=== PATIENT | female | born 2000 | race Caucasian/White ===

== ENCOUNTER 2018-12-04 07:43 | Outpatient (CLI) | payer OTHER ==
--- NOTE | 2018-12-04 09:05 | ULT ---
EXAM: OB ultrasound COMPARISON: None HISTORY: female. Evaluate size, dates, and anatomy. TECHNIQUE: Multiplanar grayscale and color Doppler images were obtained in a transabdominal ult rasound. FINDINGS: There is a single live intrauterine with heart rate of 143 bpm. A survey wa s performed which is unremarkable. The head, intracranial structures, heart, stomach, kidneys, umbilical cord, umbilical cord insertion, spine, face, and extremities were evaluated and were unrema rkable. Estimated weight is 282 g. Average age of the fetus based off today's examination is 19 weeks 5 days. BPD 4.73 cm -- 20 weeks 3 days HC 17.43 cm -- 20 weeks 0 days AC 13.90 cm -- 19 weeks 3 days FL 2.91 cm -- 19 weeks 0 days The placenta is anterior in location without focal abnormality. Amniotic fluid volume is subjectivel y within normal limits. The cervix is normal in length. There is no evidence of placenta previa. IMPRESSION: Single live intrauterine with estimated age of 19 weeks 5 days.
== END 2018-12-04 07:44 | disposition home or self-care (01) ==
LOC: BICULT 07:43 → EDSEX 07:43 → BICULT 07:44
DX: Z34.02 Encounter for supervision of normal first pregnancy, second trimester (principal); Z3A.19 19 weeks gestation of pregnancy
CPT/HCPCS: 76805

== ENCOUNTER 2019-01-03 17:00 | Day surgery (SDC) | payer OTHER ==
[2019-01-03 17:45] VITALS: BMI 26.4
[2019-01-03] MEDS ORDERED: hydrALAZINE 20 MG/ML VIAL SLOW IVP PRN (17:57)
[2019-01-03 18:30] LABS: Amnisure Test No Membranes Rupture (No Rupture)
[2019-01-03 18:31] LABS: Amnisure Internal Control QC ACCEPTABLE (ACCEPTABLE)
--- NOTE | 2019-01-03 19:20 | CON ---
DATE OF CONSULTATION: 01/03/2019 PRESENTING COMPLAINT: Possible rupture of membranes. HISTORY OF PRESENT ILLNESS: The patient is 24 or 25 weeks gestations, primarily sees Dr. Jason. She picked up some heavy things this afternoon and noticed fluid leaking. She said that she changed a pad and still had some presenting. She denies bleeding. She reports an active fetus. OB-DISPENSING AND MEASURING OPTICIAN HISTORY: None. Antepartum record not available on the unit. PAST MEDICAL HISTORY: Significant for Raynaud syndrome. PAST SURGICAL HISTORY: Significant for hernia repair. ALLERGIES: DENIES. MEDICATIONS: vitamins. SOCIAL HISTORY: Denies tobacco, alcohol, or IV drug use. FAMILY HISTORY: Noncontributory. REVIEW OF SYSTEMS: Noncontributory. PHYSICAL EXAMINATION: VITAL SIGNS: Temperature 98.5, pulse 85, respirations 17, and blood pressure 117/75. HEENT: Within normal limits auscultation bilaterally. HEART: Regular rhythm. ABDOMEN: Soft and nontender without rebound or guarding. FHTs are 150s. Vulva without lesions. Vagina without significant discharge noted on the perineum. Cervical exam is deferred. EXTREMITIES: No clubbing, cyanosis, or edema. AmniSure was collected was sent was negative. The patient's pad remained dry for approximately 1 hour after presentation to Labor and Delivery. IMPRESSION: Leukorrhea . No evidence of rupture of membranes at 25 weeks gestation. PLAN: Discharge home, keep scheduled followup Dr. Jason. ER precautions. Job ID: [id number]
[2019-01-04] MEDS ORDERED: FLU VACC QS2019-20(6MOS UP)/PF 60 MCG/0.5 ML SYRINGE IM ONE (09:00)
== END 2019-01-03 19:03 | disposition home or self-care (01) ==
LOC: L&D/OP 17:00
PROVIDERS: ATTEND Family Medicine
DX: O99.89 Other specified diseases and conditions complicating pregnancy, childbirth and the puerperium (principal); N89.8 Other specified noninflammatory disorders of vagina; O99.412 Diseases of the circulatory system complicating pregnancy, second trimester; I73.00 Raynaud's syndrome without gangrene; Z3A.25 25 weeks gestation of pregnancy
CPT/HCPCS: 84112; 99283

== ENCOUNTER 2019-01-20 12:43 | Day surgery (SDC) | payer OTHER ==
[2019-01-20 13:20] VITALS: BP 120/72; TEMP 99.4
[2019-01-20 13:21] VITALS: BMI 26.5
[2019-01-20] MEDS ORDERED: hydrALAZINE 20 MG/ML VIAL SLOW IVP PRN (13:41)
[2019-01-20] MEDS ORDERED: Lactated Ringer's 1,000 ML IV SCH ×2 (13:45→14:00)
[2019-01-20] MEDS ORDERED: Acetaminophen 650 MG in Premix Bag 1 BAG IVPB SCH (13:45)
[2019-01-20] MEDS ORDERED: Ondansetron PF 4 MG/2 ML Vial IVP SCH (13:45)
--- NOTE | 2019-01-20 13:46 | PDOC.FPROB ---
FMR OB H&P: HPI - History of Present Illness Chief Complaint: N/V/D Indentification: 18 y/o @ 27.0 WGA History of Present Illness: Presents for nausea, vomiting, diarrhea that started at 4am. She reports about 10 episodes of each since that time. She is unable to keep anything down including water. She reports a fever as high as 100.9. She denies any sick contacts. Has not received her flu shot. She reports her only complications during this are a subchorionic hemorrhage in her 1st T that resolved and now she is on restricted duty but she isn't sure why. Primary Care Physician: Dr. Jason FMR OB H&P: Current - Care : 1 Para: 0 Gestational age: 27w0d FMR OB H&P: History - Past Medical History PMH: Heart murmur, Raynauds - OB History OB History: G1 - Surgical History Sx History: 3 inguinal hernia repairs - Social History Social History: used to smoke, but quit when she found out she was . Denies EtOH or drug use - Family History Family History: Noncontributory FMR OB H&P: Medications - Current Home Medications: Medication Instructions Recorded Confirmed Type Vitamin 1 tablet PO DAILY 01/20/19 01/20/19 History Allergies/Adverse Reactions: Allergies Allergy/AdvReac Type Severity Reaction Status Date / Time No Known Allergies Allergy Unverified 01/03/19 17:47 FMR OB H&P: ROS - Review of Systems General: reports: fever/chills, weight/appetite/sleep changes (decreased appetite) Eyes: denies: vision changes, double vision ENT: denies: nasal congestion, sore throat Cardiovascular: denies: chest pain, edema Respiratory: denies: cough, shortness of breath Gastrointestinal: reports: abdominal pain, cramping, nausea, vomiting, diarrhea. denies: constipation Genitourinary (Female): denies: dysuria, hematuria Musculoskeletal: denies: pain, tenderness Neurologic: denies: numbness, weakness Integumentary: denies: itching, rash Psychological: denies: depression, anxiety FMR OB H&P: Vital Signs - Maternal Vital signs: Vital Signs - First Documented Temp Pulse Resp BP 99.4 F 116 H 18 120/72 01/20/19 13:20 01/20/19 13:20 01/20/19 13:20 01/20/19 13:20 - Heart Tones Baseline: 155 Variability: moderate Acceleration: absent Deceleration: absent Category: category 1 [place] contractions every: none FMR OB H&P: Physical Exam - Physical Exam General: NAD, awake, alert and oriented Deviation from normal: dry mucous membranes, NC/AT, conjunctiva clear Neck: supple, no LAD Heart: pulses present, no edema General: no respiratory distress Abdomen: soft, gravid, other (mildly tender in DANIELLE region) Musculoskeletal: pulses present Skin: good tugor, capillary refill <2 seconds FMR OB H&P: A/P - Problem List (1) Gastroenteritis Current Visit: Yes Status: Acute Code(s): K52.9 - NONINFECTIVE GASTROENTERITIS AND COLITIS, UNSPECIFIED Assessment and Plan: Pt symptoms consistent with gastroenteritis -Will treat symptomatically with zofran, 1L LR, IV tylenol -Monitor heart tones (2) Dehydration during Current Visit: Yes Status: Acute Code(s): O26.899 - OTH RELATED CONDITIONS, UNSPECIFIED TRIMESTER; E86.0 - DEHYDRATION Assessment and Plan: Will give pt 1L LR followed by LR @ 150mL/hr Zofran to help pt tolerate PO Check BMP (3) Current Visit: Yes Status: Acute Qualifiers: Weeks of gestation: 27 weeks Qualified Code(s): Z3A.27 - 27 weeks gestation of Assessment and Plan: Monitor FHT Disposition: Obs on L&D until improvement of symptoms Discussion: Date/Time: 01/20/19 4528 This H&P was discussed with Dr. De Jesus who agrees with the above documentation and plan. Signature: Tala Kiser MD, PGY-3
[2019-01-20 14:36] LABS: Anion Gap 18 mmol/L (10-20); BUN (Urea Nitrogen) 9 mg/dL (7.0-18.7); Calc. Creatinine Clearance 175 mL/min (70-130); Calcium 9.2 mg/dL (7.8-10.44); Carbon Dioxide 18 mmol/L (22-29); Chloride 106 mmol/L (98-107); Estimated GFR-MDRD Greater than 90; Glucose 74 mg/dL (70-105); Potassium 3.5 mmol/L (3.5-5.1); Sodium 138 mmol/L (136-145)
--- NOTE | 2019-01-20 16:16 | PDOC.BPN ---
- Brief Progress Note Reassessed pt after treatment. She is feeling a little better and has been able to tolerate some liquids po. Pulse and BP normal at bedside. -Will d/c patient home with return precautions -[place]eb[place] linaresn -Encouraged po hydration -f/u with Dr. Dorsey scheduled for Monday
[2019-01-20] MEDS ORDERED: FLU VACC QS2019-20(6MOS UP)/PF 60 MCG/0.5 ML SYRINGE IM ONE (21:00)
== END 2019-01-20 16:30 | disposition home or self-care (01) ==
LOC: L&D/OP 12:43
PROVIDERS: ATTEND Family Medicine
DX: O99.612 Diseases of the digestive system complicating pregnancy, second trimester (principal); K52.9 Noninfective gastroenteritis and colitis, unspecified; O26.899 Other specified pregnancy related conditions, unspecified trimester; E86.0 Dehydration; Z3A.27 27 weeks gestation of pregnancy; Z87.891 Personal history of nicotine dependence
CPT/HCPCS: 36415; 80048; 96361; 96365; 96375; 99282; J0131; J2405

== ENCOUNTER 2019-02-14 09:01 | Day surgery (SDC) | payer OTHER ==
[2019-02-14 09:29] VITALS: BP 115/73; TEMP 98.2; BMI 26.5
[2019-02-14] MEDS ORDERED: hydrALAZINE 20 MG/ML VIAL SLOW IVP PRN (10:24)
[2019-02-14 10:38] LABS: Bilirubin Negative (Negative); Blood, Urine Negative (Negative); Clarity Clear (Clear); Glucose, Urine (Dipstick) Normal (Negative); Leukocyte Negative Leu/uL (Negative); Nitrite Negative (Negative); Protein, Urine (Dipstick) Negative (Neg-Trace); RBC/HPF 0-3 HPF (0-3); Squamous Epithelial 0-3 HPF (0-3); Urobilinogen Normal mg/dL (Less than 2)
[2019-02-14 10:42] LABS: Bacteria/HPF 1+ HPF (None Seen)
[2019-02-14 10:46] LABS: Amnisure Test No Membranes Rupture (No Rupture)
[2019-02-14 10:47] LABS: Amnisure Internal Control QC ACCEPTABLE (ACCEPTABLE)
[2019-02-14] MEDS ORDERED: FLU VACC QS2019-20(6MOS UP)/PF 60 MCG/0.5 ML SYRINGE IM ONE (11:00)
--- NOTE | 2019-02-15 07:37 | PRG ---
DATE OF SERVICE: 02/14/2019 PRIMARY HYDRAULIC CORRUGATING MACHINE OPERATOR: Av Dorsey MD. CHIEF COMPLAINT: Decreased movement and leakage of fluid. HISTORY OF PRESENT ILLNESS: The patient is a 18-year-old G1, P0 female with an intrauterine at 30 weeks and 5 days, presenting to Labor and Delivery for decreased movement for the last day. She also reports that she had an episode of leakage of fluid that was watery and thought perhaps her water broke. The patient denies uterine contractions. She denies any fever or fall, headache, chest pain, shortness of breath, nausea, vomiting, diarrhea, constipation, hip problems, knee problems, muscle weakness, vaginal bleeding, urinary urgency or frequency. PAST MEDICAL HISTORY: Raynaud syndrome, migraines and a history of a heart murmur. PAST SURGICAL HISTORY: She has had three inguinal hernia repairs. ALLERGIES: NO KNOWN DRUG ALLERGIES. MEDICATIONS: vitamins. SOCIAL HISTORY: Quit smoking when she found out that she was . Denies alcohol or drug use. OB LABS: Unavailable at time of dictation. REVIEW OF SYSTEMS: Per HPI. PHYSICAL EXAMINATION: VITAL SIGNS: Blood pressure 115/73, heart rate of 91, saturating 99% on room air, respiratory rate 18, temperature 98.2. GENERAL: She appears to be in no acute distress. She is alert, oriented, cooperative, and pleasant to interact with. HEAD: Normocephalic, atraumatic. LUNGS: Clear to auscultation bilaterally. HEART: Regular rate and rhythm. ABDOMEN: Gravid, soft, nontender. EXTREMITIES: Nontender, nonedematous. She has no CVA tenderness. No paravertebral tenderness. She has minimal SI joint tenderness. EXTREMITIES: Nontender, nonedematous. GENITALIA: Vulva is without masses, lesions, or erythema. The vagina is moist with some discharge present, not significant in appearance. Cervix is closed visibly, has no erythema or visible lesions. On digital exam, cervix is closed and thick. heart tracing shows a baseline in the 140s with moderate long-term variability, positive 15 x 15 accelerations, no decelerations. She has a couple of contractions visible on the monitor and not felt by the patient. LABORATORY DATA: Urinalysis is positive for 4 to 6 white blood cells, 1+ bacteria, 0 to 3 squamous cells, negative nitrites, negative leukocyte esterase. AmniSure test is negative. VPIII is negative for Gardnerella, Trichomonas and Adrienne. ASSESSMENT AND PLAN: The patient is a 18-year-old G1, P0 female with an intrauterine at 30 weeks, presenting with decreased movement and leakage of fluid. The patient has no evidence of rupture of membranes. The patient has been given reassurance of reactive baby with a category 1 tracing. Evaluation suggests a bacteria and possible urinary tract infection. The patient has been given a prescription for Macrobid to be taken twice a day for the next week. She has instructions to follow up with her primary OB as scheduled. Job ID: [id number]
== END 2019-02-14 11:26 | disposition home health service (06) ==
LOC: L&D/OP 09:01
PROVIDERS: ATTEND Obstetrics & Gynecology
DX: O36.8130 Decreased fetal movements, third trimester, not applicable or unspecified (principal); O99.89 Other specified diseases and conditions complicating pregnancy, childbirth and the puerperium; N89.8 Other specified noninflammatory disorders of vagina; Z3A.31 31 weeks gestation of pregnancy; Z87.891 Personal history of nicotine dependence
CPT/HCPCS: 81001; 84112; 87480; 87510; 87660; 99285

== ENCOUNTER 2019-02-19 19:44 | Day surgery (SDC) | payer OTHER ==
[2019-02-19 20:16] VITALS: BP 119/76; TEMP 98.9; BMI 26.5
[2019-02-19] MEDS ORDERED: FLU VACC QS2019-20(6MOS UP)/PF 60 MCG/0.5 ML SYRINGE IM ONE (20:30)
--- NOTE | 2019-02-19 20:49 | PDOC.EVN ---
Event Note - Event Note Event Note: OBGYN At bedside now: @2051 H&P Dictated Amnisure is pending SSE in process with Maki Leavitt (M3) Procedure reviewed with patient pre-performance. EFM reviewed: 140s, reactive NST...ut irritability SSE: Maki Leavitt performed with my direct observation. CX apperas closed. No active LOF, no VB, no leakage with cough or valsalva. Exam negative for LOF at this time
[2019-02-19 20:53] LABS: Amnisure Test No Membranes Rupture (No Rupture)
[2019-02-19 20:54] LABS: Amnisure Internal Control QC ACCEPTABLE (ACCEPTABLE)
--- NOTE | 2019-02-19 21:03 | HP ---
TIME OF EVALUATION: Roughly 2044. LOCATION: Labor and Delivery in bed B. CHIEF COMPLAINT: Possible leakage of fluid after vaginal intercourse. Patient of Dr. Av Dorsey. HISTORY OF PRESENT ILLNESS: In brief, this is a 18-year-old G1, P0, at 31 weeks and 2 days with an EDC of 04/21/2019, who by her report states she had vaginal intercourse about 3 hours ago and had subsequent "pool of fluid" upon sitting. She denies vaginal bleeding and has good movement. REVIEW OF SYSTEMS: Complete review of systems was reviewed and is otherwise negative unless specified in the HPI. PAST MEDICAL HISTORY: Questionable cardiac murmur, history of Raynaud phenomenon. PAST SURGICAL HISTORY: Includes hernia repair (multiple) on the inguinal area. ALLERGIES: NONE. MEDICATIONS: Macrobid b.i.d. as given by other provider. PHYSICAL EXAMINATION: VITAL SIGNS: Blood pressure 119/76, pulse is 108, and her O2 saturation is 98%. Her temperature is 98.4. GENERAL: Clinically, there is no evidence of acute distress or acute surgical complication. : There is no evidence of gross vaginal bleeding and by RN exam, no gross evidence of leakage, although sterile spec exam is pending. INTERVENTIONS: Pending. I have ordered a sterile spec exam prep, and we were about to do a sterile speculum evaluation. LABORATORY DATA: Ordered. AmniSure was collected and is pending. ASSESSMENT: This is a G1, P0, at 31 weeks, status post vaginal intercourse with questionable leakage of fluid. Workup in process. PLAN: 1. Check AmniSure. 2. Sterile spec exam pending. 3. No evidence of labor at this time. 4. No evidence of abruption. 5. monitor shows reactive nonstress test by board review and no evidence of pathological decelerations. Job ID: [id number]
== END 2019-02-19 21:00 | disposition home or self-care (01) ==
LOC: L&D/OP 19:44
PROVIDERS: ATTEND Obstetrics & Gynecology
DX: O99.89 Other specified diseases and conditions complicating pregnancy, childbirth and the puerperium (principal); N89.8 Other specified noninflammatory disorders of vagina; Z3A.31 31 weeks gestation of pregnancy
CPT/HCPCS: 84112

== ENCOUNTER 2019-03-18 19:21 | Day surgery (SDC) | payer OTHER ==
[2019-03-18 19:50] VITALS: BP 132/81; TEMP 98.8; BMI 29.7
[2019-03-18] MEDS ORDERED: hydrALAZINE 20 MG/ML VIAL SLOW IVP PRN (20:20)
[2019-03-18 20:48] LABS: Hemoglobin 11.8 g/dL (12.0-16.0); Mean Corpuscular HGB CONC 34.9 g/dL (32.0-36.0); Mean Corpuscular Hemoglobin 31.4 pg (25.0-35.0); Mean Corpuscular Volume 90.1 fL (78.0-98.0); Mean Platelet Volume 11.6 fL (7.4-10.4); Platelet Count 121 thou/uL (130-400); RBC Distribution Width 11.1 % (11.5-14.5); Red Blood Cell (RBC) Count 3.75 mill/uL (4.00-5.20); White Blood Cell (WBC) Count 9.7 thou/uL (4.8-10.8)
[2019-03-18 21:07] LABS: ALT (SGPT) 8 U/L (8-55); AST (SGOT) 10 U/L (5-34); Albumin 3.4 g/dL (3.5-5.0); Alkaline Phosphatase 66 U/L (40-100); Anion Gap 13 mmol/L (10-20); BUN (Urea Nitrogen) 4 mg/dL (7.0-18.7); Bilirubin, Total 0.2 mg/dL (0.2-1.2); Calc. Creatinine Clearance 168 mL/min (70-130); Calcium 9.7 mg/dL (7.8-10.44); Carbon Dioxide 22 mmol/L (22-29); Chloride 104 mmol/L (98-107); Estimated GFR-MDRD Greater than 90; Globulin 3.3 g/dL (2.4-3.5); Glucose 118 mg/dL (70-105); Potassium 3.1 mmol/L (3.5-5.1); Protein, Total 6.7 g/dL (6.0-8.3); Sodium 136 mmol/L (136-145); Uric Acid 6.3 mg/dL (2.6-6.0)
[2019-03-18 21:51] LABS: Creatinine, Urine 30.93 mg/dL (47-110); Protein, Urine Random Quant Less than 10 mg/dL (1-14)
[2019-03-18] MEDS ORDERED: Fioricet 325/50/40 mg Tablet PO SCH (22:15)
--- NOTE | 2019-03-19 08:18 | PRG ---
DATE OF SERVICE: 03/18/2019 PRIMARY RETAIL SALESWORKER: Dr. Av Dorsey. CHIEF COMPLAINT: Elevated blood pressures and headache. HISTORY OF PRESENT ILLNESS: The patient is a 18-year-old G1, P0 female with an intrauterine at 35 weeks and 2 days, who is presenting to Labor and Delivery after checking her blood pressures at home and noticing them to be elevated. The patient reports that they were in the 140s up to the 150s at home on her mom's blood pressure cuff. The patient reported that she took her blood pressure because she was having a headache and did not feel very well. The patient denies a known hypertensive disorder. She does report a history of migraines, but reports that this headache unrelieved with Tylenol, does not feel like a typical migraine. She denies fever, fall, chest pain, shortness of breath, nausea, vomiting, diarrhea, constipation, hip problems, knee problems, muscle weakness. Denies vaginal bleeding, leakage of fluid, urinary urgency or frequency. PAST MEDICAL HISTORY: History of heart murmur, Raynaud's syndrome, arthritis. PAST SURGICAL HISTORY: She has had 3 inguinal hernia repairs. ALLERGIES: NO KNOWN DRUG ALLERGIES. MEDICATIONS: vitamins. SOCIAL HISTORY: Denies drug, alcohol, tobacco use. OBSTETRICS LABORATORY DATA: Unavailable at time of dictation. REVIEW OF SYSTEMS: Per HPI. PHYSICAL EXAMINATION: VITAL SIGNS: The patient's initial blood pressure was 132/81, heart rate of 100, respiratory rate of 20, temperature 98.8. The patient stay for approximately almost 3-1/2 hours shows blood pressures primarily in the normal range. She did have a couple pressures borderline in the 142/74 and had an isolated 153/82, otherwise primarily 120s over 70s. Heart rates in the 80s. GENERAL: She appears to be in no acute distress. She is alert, oriented, cooperative, and pleasant to interact with. HEAD: Normocephalic and atraumatic. LUNGS: Clear to auscultation bilaterally. HEART: Has a regular rate and rhythm. ABDOMEN: Gravid, soft, nontender. She has no right upper quadrant tenderness. Her DTRs are 1+ with no clonus bilaterally. She has no significant pitting edema. Her weight at 152 is reported to be this stated weight that she had at her last OB visit. DIAGNOSTIC DATA: heart tracing shows the fetus with a baseline in the 130s with moderate long-term variability, positive 15 x 15 accelerations, no decelerations. Tocometer showing no contraction pattern. LABORATORY DATA: Show a hemoglobin of 11.8, hematocrit 33.8, and platelets of 121,000. Urine is negative for protein with a random of less than 10. Chemistry: Potassium 3.1, chloride 104, BUN of 4, creatinine 0.58, uric acid 6.3, AST of 10, ALT of 8. ASSESSMENT AND PLAN: The patient is a 18-year-old female who may be exhibiting signs of gestational hypertension. Her headache resolved with a dose of Fioricet. She has no significant lab abnormalities, though she does have platelet count that is on the lower side. I do not have any prior visits to compare and uric acid is elevated. The patient's headaches resolved with Fioricet. Otherwise her labs are within normal limits and her vast majority of her blood pressures have all been within normal limits. No signs or symptoms that indicate need for delivery or prolonged monitoring with us. The patient has been counseled to follow up with her primary end touching machine operator in the next couple of days and to keep checking her blood pressures at home should she experience worsening symptoms or continued elevated pressures to contact her end touching machine operator or present to Labor and Delivery for further evaluation. Fetus has a category 1 tracing reactive nonstress test. Job ID: [id number]
== END 2019-03-18 23:24 | disposition home or self-care (01) ==
LOC: L&D/OP 19:21
PROVIDERS: ATTEND Obstetrics & Gynecology
DX: O99.89 Other specified diseases and conditions complicating pregnancy, childbirth and the puerperium (principal); R03.0 Elevated blood-pressure reading, without diagnosis of hypertension; R51 Headache; M19.90 Unspecified osteoarthritis, unspecified site; Z3A.35 35 weeks gestation of pregnancy
CPT/HCPCS: 80053; 82570; 84156; 84550; 85027

== ENCOUNTER 2019-03-27 12:29 | Day surgery (SDC) | payer OTHER ==
[2019-03-27 13:39] LABS: Mean Corpuscular HGB CONC 34.7 g/dL (32.0-36.0); Mean Corpuscular Hemoglobin 31.8 pg (25.0-35.0); Mean Corpuscular Volume 91.6 fL (78.0-98.0); Mean Platelet Volume 10.7 fL (7.4-10.4); Platelet Count 170 thou/uL (130-400); RBC Distribution Width 11.5 % (11.5-14.5); Red Blood Cell (RBC) Count 3.78 mill/uL (4.00-5.20); White Blood Cell (WBC) Count 10.4 thou/uL (4.8-10.8)
[2019-03-27 14:06] LABS: ALT (SGPT) 8 U/L (8-55); AST (SGOT) 11 U/L (5-34); Albumin 3.4 g/dL (3.5-5.0); Alkaline Phosphatase 66 U/L (40-100); Anion Gap 13 mmol/L (10-20); BUN (Urea Nitrogen) 5 mg/dL (7.0-18.7); Bilirubin, Total 0.3 mg/dL (0.2-1.2); Calc. Creatinine Clearance 0 mL/min (70-130); Calcium 9.3 mg/dL (7.8-10.44); Carbon Dioxide 22 mmol/L (22-29); Chloride 104 mmol/L (98-107); Estimated GFR-MDRD Greater than 90; Globulin 3.1 g/dL (2.4-3.5); Glucose 67 mg/dL (70-105); Potassium 3.5 mmol/L (3.5-5.1); Protein, Total 6.5 g/dL (6.0-8.3); Sodium 135 mmol/L (136-145)
--- NOTE | 2019-03-27 14:31 | ULT ---
ULTRASOUND BIOPHYSICAL PROFILE: HISTORY: distress, -induced hypertension workup FINDINGS: A single live intrauterine gestation is seen. heart rate:1:30bpm ARIANA: 13.5 cm Placenta: Anterior without placenta previa Cervical length: 3.2 cm OB biophysical profile: tone: 2 breathin movements: 2 Amniotic fluid: 2 IMPRESSION: The ultrasound biophysical profile score is 8 out of 8.
[2019-03-27 14:34] LABS: Creatinine, Urine 29.75 mg/dL (47-110); Protein, Urine Random Quant Less than 10 mg/dL (1-14)
[2019-03-27 14:40] VITALS: BMI 29.2
== END 2019-03-27 16:20 | disposition home or self-care (01) ==
LOC: L&D/OP 12:29
PROVIDERS: ATTEND Obstetrics & Gynecology
DX: O77.9 Labor and delivery complicated by fetal stress, unspecified (principal); Z3A.00 Weeks of gestation of pregnancy not specified
CPT/HCPCS: 36415; 76819; 80053; 82570; 84156; 85027

== ENCOUNTER 2019-04-01 12:48 | Inpatient (IN) | payer OTHER ==
[2019-04-01] MEDS: Lactated Ringer's 1,000 ML IV SCH ×2 (13:12→21:22)
[2019-04-01 13:24] VITALS: BMI 30.7
[2019-04-01] MEDS ORDERED: Misoprostol 200 MCG TAB PR PRN (13:53)
[2019-04-01] MEDS ORDERED: Ondansetron PF 4 MG/2 ML Vial IVP PRN (13:53)
[2019-04-01] MEDS ORDERED: Acetaminophen 500 MG TAB PO PRN (13:53)
[2019-04-01] MEDS ORDERED: Diphenoxylate HCl/Atropine Tablet PO PRN ×2 (13:53)
[2019-04-01] MEDS ORDERED: Lidocaine 1% (PF) 30 ML VIAL SC PRN (13:53)
[2019-04-01] MEDS ORDERED: Ibuprofen 800 MG TAB PO PRN (13:53)
[2019-04-01] MEDS ORDERED: Butorphanol Tartrate 1 MG/ML VIAL SLOW IVP PRN (13:53)
[2019-04-01] MEDS ORDERED: NS / Oxytocin 40 units/1000ml 1,000 ML IV PRN (13:53)
[2019-04-01] MEDS ORDERED: HYDROcodone/Acetaminophen 5/325 mg Tablet PO PRN ×2 (13:53)
[2019-04-01] MEDS ORDERED: Promethazine HCl 25 MG/ML VIAL IM PRN (13:53)
[2019-04-01] MEDS ORDERED: Zolpidem Tartrate 5 MG TAB PO PRN (13:53)
[2019-04-01] MEDS ORDERED: hydrALAZINE 20 MG/ML VIAL SLOW IVP PRN (13:53)
[2019-04-01] MEDS ORDERED: Docusate 100 MG CAP PO PRN (13:53)
[2019-04-01] MEDS ORDERED: NS w/ Oxytocin 10 units 500 ML IV SCH ×2 (14:00)
[2019-04-01 14:15] LABS: Hemoglobin 12.4 g/dL (12.0-16.0); Mean Corpuscular HGB CONC 35.3 g/dL (32.0-36.0); Mean Corpuscular Hemoglobin 32.7 pg (25.0-35.0); Mean Corpuscular Volume 92.7 fL (78.0-98.0); Mean Platelet Volume 10.4 fL (7.4-10.4); Platelet Count 188 thou/uL (130-400); RBC Distribution Width 11.6 % (11.5-14.5); Red Blood Cell (RBC) Count 3.81 mill/uL (4.00-5.20); White Blood Cell (WBC) Count 8.5 thou/uL (4.8-10.8)
[2019-04-01 15:11] LABS: Syphilis Antibody Nonreactive (Nonreactive); Syphilis Antibody Index 0.04 S/CO (<1.00 Non-Reactive)
[2019-04-01 15:47] LABS: Hep B Surf Ag Non-Reactive S/CO (NonReactive)
[2019-04-01] MEDS: Misoprostol 100 MCG TAB VAG SCH ×2 (15:55→22:22)
--- NOTE | 2019-04-01 23:13 | PDOC.LDHP ---
Labor and Delivery H&P HPI: 18 y/o at 37 and 2/7 weeks seen in clinic today for F/U of what appeared last week to be GHTN with neg preeclampsia work-up on L&D. Yesterday, patient reports elevated BPs at home in the 150s/90s, a severe "migrain" AMIN, and decreased movement the last 24 hours. growth US repeated from last week, and although statistically, few conclusion can be made at such a short repeat interval, no growth was noted in one weeks time. BPP in office was 04/20. NST not done in office, but rather patient sent immediately to L&D for monitoring and admission for delivery. On FHT's appear category 1, and cytotec induction started. Current gestational age (weeks): 37 Due date: 04/21/19 Grav: 1 Para: 0 Current complications: gestational hypertension Abnormal US findings: Yes (04/20 BPP in office today.) Current medications: pre-dina vitamins Previous surgical history: none Allergies/Adverse Reactions: Allergies Allergy/AdvReac Type Severity Reaction Status Date / Time No Known Allergies Allergy Verified 04/01/19 13:26 Social history: none - Physical Exam Vital signs reviewed and normal: yes General: NAD, resting Heart: RRR Lungs: CTAB Abdomen: gravid Extremeties: no edema FHT: category 1 - Vaginal Exam cm dilated: 0 Effacement: 75% Station: -1 - Assessment L&D Assessment: medically indicated induction - Plan Plan: admit to L&D, cervical ripening
[2019-04-02] MEDS: Lactated Ringer's 1,000 ML IV SCH ×2 (03:53→14:24)
[2019-04-02] MEDS ORDERED: Terbutaline Sulfate 1 MG/ML VIAL ONE (04:15)
[2019-04-02] MEDS ORDERED: Terbutaline Sulfate 1 MG/ML VIAL SC SCH ×3 (06:00→06:30)
[2019-04-02] MEDS ORDERED: Bicitra 30 ML UDCUP ONE (08:09)
[2019-04-02] MEDS ORDERED: Oxytocin 10 UNITS/ML VIAL ONE ×5 (08:18→09:43)
[2019-04-02] MEDS ORDERED: MORPHINE 5 MG/10 ML PF VIAL ONE (08:18)
[2019-04-02] MEDS ORDERED: Famotidine/PF 20 mg/2ml Vial ONE (08:30)
[2019-04-02] MEDS ORDERED: Methylergonovine 0.2 MG/ML VIAL ONE (09:14)
[2019-04-02] MEDS ORDERED: Carboprost 250 MCG/ML AMP ONE ×4 (09:20→10:10)
[2019-04-02] MEDS ORDERED: Misoprostol 200 MCG TAB ONE (09:20)
[2019-04-02] MEDS: Carboprost 250 MCG/ML AMP IM PRN ×4 (09:20→10:12)
[2019-04-02] MEDS ORDERED: Tranexamic Acid 1,000 MG/10 ML VIAL ONE ×2 (09:32→10:18)
[2019-04-02 09:33] LABS: Actual Bicarbonate (HCO3a) 19.7 mEq/L (22-28); Base Excess (BEa) -14.3 mEq/L (-2.0 to +3.0)
[2019-04-02] MEDS ORDERED: Diphenoxylate HCl/Atropine Tablet PO PRN (10:00)
[2019-04-02] MEDS ORDERED: diphenhydrAMINE 50 MG/ML VIAL IVP PRN (10:07)
[2019-04-02] MEDS ORDERED: Ondansetron PF 4 MG/2 ML Vial IVP PRN ×2 (10:07→14:16)
[2019-04-02] MEDS ORDERED: Naloxone HCl 0.4 mg/ml Vial IV PRN (10:07)
[2019-04-02] MEDS ORDERED: L&D-Morphine 4 MG/ML VIAL SLOW IVP PRN (10:07)
[2019-04-02] MEDS ORDERED: Meperidine HCl/PF 25 MG/ML VIAL SLOW IVP PRN (10:07)
[2019-04-02] MEDS ORDERED: Promethazine HCl 25 MG/ML VIAL IM PRN ×2 (10:07→14:16)
[2019-04-02] MEDS ORDERED: HYDROmorphone 2 MG/ML VIAL SLOW IVP PRN (10:07)
[2019-04-02] MEDS ORDERED: Naloxone HCl 0.4 mg/ml Vial IVP PRN ×2 (10:07)
[2019-04-02] MEDS ORDERED: Ondansetron HCl/PF 4 MG/2 ML Vial IVP PRN (10:07)
[2019-04-02] MEDS ORDERED: Promethazine HCl 25 MG SUPP PR PRN (10:07)
[2019-04-02] MEDS ORDERED: Communication Order-Pharmacy FS SCH (10:15)
[2019-04-02] MEDS ORDERED: Dexamethasone 20 MG/5 ML VIAL ONE (11:26)
[2019-04-02] MEDS ORDERED: Ketorolac Tromethamine 30 MG/ML VIAL ONE (11:26)
[2019-04-02] MEDS ORDERED: PHENYLEPHRINE-NS 100 MCG/ML 10 ML SYRINGE ONE (11:26)
[2019-04-02] MEDS ORDERED: Ondansetron PF 4 MG/2 ML Vial ONE (11:26)
[2019-04-02] MEDS ORDERED: Metoclopramide HCl 10 MG/2 ML VIAL ONE (11:26)
[2019-04-02] MEDS ORDERED: ePHEDrine/0.9% NaCl/PF SYRINGE 50 mg/10 ml ONE (11:26)
[2019-04-02] MEDS ORDERED: diphenhydrAMINE 25 MG CAP PO PRN (14:16)
[2019-04-02] MEDS ORDERED: NS / Oxytocin 40 units/1000ml 1,000 ML IV SCH (14:16)
[2019-04-02] MEDS ORDERED: hydrALAZINE 20 MG/ML VIAL SLOW IVP PRN (14:16)
[2019-04-02] MEDS ORDERED: Bisacodyl 10 MG SUPP PR PRN (14:16)
[2019-04-02] MEDS ORDERED: Lanolin Ointment 7 GM TUBE TOP PRN (14:16)
[2019-04-02] MEDS: Misoprostol 100 MCG TAB VAG SCH ×2 (16:25→16:26)
[2019-04-02] MEDS ORDERED: Ketorolac Tromethamine 30 MG/ML VIAL IVP PRN (18:00)
--- NOTE | 2019-04-02 18:57 | PDOC.PP ---
Post Progress Note Post Day #: 0 PO intake tolerated: yes Vital Signs (12 hours) Temp Pulse Resp BP Pulse Ox 04/02/19 13:45 98.9 F 93 18 144/89 H 98 Weight Weight 157 lb - Physical Examination Cardiovascular: no m/r/g Respiratory: clear to auscultation bilaterally Abdominal: lochia, no distention, appropriately TTP Skin: CS incision dry & intact, no rash Neurological: no gross focal deficits Psychiatric: A&Ox3, normal affect (Lochia is stable, s/p post uterine atony at . Thus far, no pRBC transfusion.) Result Diagrams: 04/01/19 13:24 Additional Labs: Post Labs Blood Type O POSITIVE 04/01/19 14:59 Hep Bs Antigen Non-Reactive S/CO (NonReactive) 04/01/19 13:24
[2019-04-02] MEDS: Ferrous Sulfate 325 MG TAB PO SCH (21:00)
[2019-04-02] MEDS: Docusate Calcium (SURFAK) 240 MG CAP PO SCH (21:00)
[2019-04-02] MEDS ORDERED: HYDROcodone/Acetaminophen 5/325 mg Tablet PO PRN (22:15)
[2019-04-02] MEDS ORDERED: Zolpidem Tartrate 5 MG TAB PO PRN (22:15)
[2019-04-03] MEDS: HYDROcodone/Acetaminophen 5/325 mg Tablet PO PRN ×2 (01:34→17:00)
[2019-04-03] MEDS ORDERED: Varicella virus, LIVE 0.5 ML VIAL SC ONE (09:00)
[2019-04-03] MEDS ORDERED: Adacel (T-DAP) 0.5 ML SYRINGE IM ONE (09:00)
[2019-04-03] MEDS ORDERED: Measles/Mumps/Rubella 10 MCG/0.5 ML VIAL SC ONE (09:00)
[2019-04-03] MEDS: Docusate Calcium (SURFAK) 240 MG CAP PO SCH ×2 (09:29→22:01)
[2019-04-03] MEDS: Simethicone Chewable 80 MG TAB PO PRN (09:29)
[2019-04-03] MEDS: Prenatal Vitamin 1 TAB PO SCH (09:29)
[2019-04-03 09:58] LABS: Hemoglobin 9.7 g/dL (12.0-16.0); Mean Corpuscular HGB CONC 33.5 g/dL (32.0-36.0); Mean Corpuscular Hemoglobin 31.3 pg (25.0-35.0); Mean Corpuscular Volume 93.4 fL (78.0-98.0); Mean Platelet Volume 9.9 fL (7.4-10.4); Platelet Count 121 thou/uL (130-400); RBC Distribution Width 11.7 % (11.5-14.5); Red Blood Cell (RBC) Count 3.09 mill/uL (4.00-5.20); White Blood Cell (WBC) Count 12.4 thou/uL (4.8-10.8)
[2019-04-03] MEDS: Ferrous Sulfate 325 MG TAB PO SCH ×2 (10:54→22:01)
[2019-04-03] MEDS: Ibuprofen 800 MG TAB PO SCH ×2 (14:26→22:01)
--- NOTE | 2019-04-03 18:38 | PDOC.PP ---
Post Progress Note Post Day #: 1 PO intake tolerated: yes Flatus: yes Ambulation: yes Vital Signs (12 hours) Temp Pulse Resp BP Pulse Ox 04/03/19 08:35 98.1 F 106 H 20 96/54 L 99 Weight Weight 157 lb - Physical Examination General: NAD Cardiovascular: no m/r/g, RRR Respiratory: clear to auscultation bilaterally Abdominal: + bowel sounds, lochia, no distention Extremities: negative homans (B) Skin: CS incision dry & intact, no rash Neurological: no gross focal deficits Psychiatric: A&Ox3, normal affect Result Diagrams: 04/03/19 09:52 Additional Labs: Post Labs Blood Type O POSITIVE 04/01/19 14:59 Hep Bs Antigen Non-Reactive S/CO (NonReactive) 04/01/19 13:24
--- NOTE | 2019-04-03 22:35 | OP ---
DATE OF PROCEDURE: 04/02/2019 TIME OF SERVICE: 0913 [place] Standard Time. PREOPERATIVE DIAGNOSIS: Intrauterine at 37 weeks and 1 day with a diagnosis of non-reassuring status in the clinic with an abnormal biophysical profile. The patient was admitted and initially underwent Cytotec induction, which resulted in non-reassuring heart tones. She was then taken to the operating room for section. POSTOPERATIVE DIAGNOSIS: Intrauterine at 37 weeks and 1 day with a diagnosis of non-reassuring status in the clinic with an abnormal biophysical profile. The patient was admitted and initially underwent Cytotec induction, which resulted in non-reassuring heart tones. She was then taken to the operating room for section. PROCEDURE PERFORMED: Primary low transverse section. FINDINGS: Viable female , weighing 2436 g or 5 pounds 6 ounces, Apgars of 3 at 1 minute, 5 at 5 minutes and 8 at 10 minutes. COMPLICATIONS: Uterine atony resolving and need for additional medications intraoperatively. QUANTITATIVE BLOOD LOSS: 740 mL. DETAILS OF THE PROCEDURE: The patient was consented and taken back to the operating room where spinal anesthesia was found to be adequate. She was then prepped and draped in the normal sterile fashion. A timeout was performed by the entire operative team. The incision was then marked with a marking pen tested using sharp pickups. An incision was then made with a scalpel. The incision was carried through the adipose tissue down to the underlying rectus fascia using both sharp dissection as well as cautery. Once the fascia was identified, it was incised in the midline and then the fascial incision was carried through in both lateral directions using sharp as well as cautery dissection techniques. Next, the superior aspect of the rectus fascia was grasped with 2 Licha clamps, which was tented up and the rectus muscles were dissected off using blunt dissection as well as cautery dissection. Similarly, the inferior aspect of the fascial incision was grasped with 2 Licha clamps, tented up and the rectus muscles were dissected off bluntly as well as sharply. Next, the rectus muscles were in the midline and the peritoneum identified. The peritoneum was then carefully grasped with 2 hemostats and entered sharply. The peritoneal incision was extended superiorly and inferiorly and bladder blade was placed in the lower abdomen. At this point, the uterus was identified and the bladder flap was then developed using pickups with teeth as well as Metzenbaum scissors in both lateral directions. The bladder flap was then dissected downwards using the grab operator's finger as well as Metzenbaum scissors. The bladder blade was replaced. The lower uterine segment was then identified and entered sharply using a clean scalpel. The uterine incision was then dissected downwards until thin layer of muscle remained and this was entered bluntly using a hemostat to avoid any injury to the baby. The uterine incision was then stretched using two fingers in both lateral directions. An amniotomy was performed artificially using a hemostat and the baby was delivered using fundal pressure in a gentle fashion. Once out, the baby's mouth and nose were bulb suctioned, cord clamped and cut, and the baby was handed to waiting attendants. Next, the uterus was exteriorized, cleared of all clots and debris and the uterine incision was repaired with #1 Monocryl in a running locking fashion. A 2nd suture of the same type was used to obtain complete hemostasis at the uterine incision. The bladder flap was reapproximated using 3-0 Monocryl. Next, patient's left and right adnexa were inspected and appeared to be within normal limits. The posterior cul-de-sac was blotted dry and hemostasis assured. One more look at the uterine incision demonstrated hemostasis. Next, the uterus was replaced back within the abdomen. The peritoneum was reapproximated using 2-0 Monocryl without difficulty. The rectus muscles were then allowed to come back together and 0 chromic was used to aid in reapproximation of the muscle as necessary. The rectus fascia was then reapproximated in a running fashion using 0 Vicryl suture. The adipose tissue was then examined and appeared to be well approximated without any obvious separations. Finally, the skin was reapproximated with 3-0 Monocryl on a Jamir needle without difficulty and Dermabond adhesive was applied to the skin. Once the glue was dry, the drapes were removed and the patient was transferred to an ambulatory bed where she was taken to recovery awake and in stable condition. Sponge, lap, and needle counts were correct x3. Once the uterus was repaired and baby was out, substantial uterine atony was encountered, which may or may not have been related to terbutaline given prior to delivery. The patient received initial Pitocin followed by methargen, Hemabate, Cytotec, and tranexamic acid during the section to help with uterine tone. Finally, Pitocin 10 units was also injected directly into the uterine musculature. We watched the uterus for an additional 20 minutes or so to make sure that it was regaining tone. We also monitored vaginal bleeding by having the supervisor heading change the sheets under the patient and estimate blood loss on several occasions. Finally, we felt quite confident that the uterus had relatively normal tone and bleeding vaginally was minimal. The surgery continued with normal closure as described above. The patient was watched for approximately 4 hours on Labor and Delivery before being transferred to . Her bleeding remained relatively minimal. Job ID: [id number]
[2019-04-04] MEDS: Ibuprofen 800 MG TAB PO SCH ×3 (05:23→21:04)
[2019-04-04] MEDS: Simethicone Chewable 80 MG TAB PO PRN ×2 (05:29→19:22)
[2019-04-04] MEDS: Ferrous Sulfate 325 MG TAB PO SCH ×2 (08:18→21:04)
[2019-04-04] MEDS: Prenatal Vitamin 1 TAB PO SCH (08:18)
[2019-04-04] MEDS: Docusate Calcium (SURFAK) 240 MG CAP PO SCH ×2 (08:18→21:04)
[2019-04-04] MEDS: HYDROcodone/Acetaminophen 5/325 mg Tablet PO PRN (16:52)
--- NOTE | 2019-04-04 18:18 | PDOC.PP ---
Post Progress Note Post Day #: 2 PO intake tolerated: yes Ambulation: yes Vital Signs (12 hours) Temp Pulse Resp BP Pulse Ox 04/04/19 07:45 98.7 F 104 H 18 117/59 L 97 Weight Weight 157 lb - Physical Examination General: NAD Cardiovascular: no m/r/g, RRR Respiratory: clear to auscultation bilaterally, non-labored breathing Abdominal: + bowel sounds, lochia, no distention, appropriately TTP Extremities: negative homans (B) Skin: CS incision dry & intact, no rash Neurological: no gross focal deficits Psychiatric: A&Ox3, normal affect Result Diagrams: 04/03/19 09:52 Additional Labs: Post Labs Blood Type O POSITIVE 04/01/19 14:59 Hep Bs Antigen Non-Reactive S/CO (NonReactive) 04/01/19 13:24
[2019-04-05] MEDS: Ibuprofen 800 MG TAB PO SCH (05:23)
[2019-04-05 07:49] VITALS: BP 123/74; TEMP 98.8
[2019-04-05] MEDS: Prenatal Vitamin 1 TAB PO SCH (09:08)
[2019-04-05] MEDS: Ferrous Sulfate 325 MG TAB PO SCH (09:08)
[2019-04-05] MEDS: Docusate Calcium (SURFAK) 240 MG CAP PO SCH (09:08)
[2019-04-05] MEDS: HYDROcodone/Acetaminophen 5/325 mg Tablet PO PRN (09:08)
[2019-04-07] MEDS ORDERED: Ibuprofen 800 MG TAB PO SCH (22:00)
--- NOTE | 2019-04-07 22:38 | PQF ---
[employer] Inspector Crystal Reports Winform Viewer BRIANBYRON COFFEY RICHARD HERNANDEZ MD [id number] CLINICAL DOCUMENTATION CLARIFICATION FORM: POST DISCHARGE Addendum to original discharge summary date: ____ Late entry note date: __ DATE: 04/07/19 ATTN: Richard Dorsey Please exercise your independent, professional judgment in responding to the clarification form. Clinical indicators are provided on the bottom of this form for your review Can you please further clarify the diagnosis of the patient based on the clinical indicators below? Please check appropriate box(s): [ ] Acute blood loss anemia [ ] Post-op anemia related to acute blood loss [ ] No Anemia [ ] Other diagnosis please specify SEVERE UTERINE ATONY [ ] Unable to determine In addition, please specify: Present on Admission (POA): [ ] Yes [ X ] No [ ] Unable to determine For continuity of documentation, please document condition throughout progress notes and discharge summary. Thank You. CLINICAL INDICATORS - SIGNS / SYMPTOMS / LABS Post PM 04/02 pg.1- status post uterine atony at . Thus far, no pRBC transfusion Laboratory- HCT 35.3L, 28.9L Laboratory-HGB 12.4L, 9.7L OP report pg.1- EBL 740ml RISK FACTORS 37weeks- H and P pg.1 Gestational hypertension- H and P pg.1 Primary low transverse - OP report 04/02 pg.1 TREATMENTS: Ferrous Sulfate 325mg PO- MAR IV fluids- MAR [employer] Inspector Crystal Reports Winform Viewer (This form is maintained as a part of the permanent medical record) 2014 [email or web address]. All Rights Reserved [email or web address]
== END 2019-04-05 12:05 | disposition home or self-care (01) | DRG 788 ==
LOC: L&D/OP 12:48 → L&D 13:03 → 3SW 04-02 14:01
PROVIDERS: ADMIT Obstetrics & Gynecology; ATTEND Obstetrics & Gynecology
PROC: 10D00Z1 Extraction of Products of Conception, Low, Open Approach (ICD-10-PCS; principal; 2019-04-02)
PROC: 10907ZC Drainage of Amniotic Fluid, Therapeutic from Products of Conception, Via Natural or Artificial Opening (ICD-10-PCS; 2019-04-02)
PROC: 3E0P7VZ Introduction of Hormone into Female Reproductive, Via Natural or Artificial Opening (ICD-10-PCS; 2019-04-02)
PROC: 3E033VJ Introduction of Other Hormone into Peripheral Vein, Percutaneous Approach (ICD-10-PCS; 2019-04-02)
DX: O76 Abnormality in fetal heart rate and rhythm complicating labor and delivery (principal); O13.4 Gestational [pregnancy-induced] hypertension without significant proteinuria, complicating childbirth; O61.0 Failed medical induction of labor; O75.89 Other specified complications of labor and delivery; Z3A.37 37 weeks gestation of pregnancy; Z37.0 Single live birth
CPT/HCPCS: 36415; 51702; 82805; 85027; 86780; 86850; 86900; 86901; 87340; 88307; 90715; J0690; J1100; J1885; J2210; J2274; J2405; J2590; J2765; J3105; J3490; S0028

== ENCOUNTER 2019-04-17 21:19 | Emergency (ER) | payer OTHER ==
[2019-04-17 22:01] LABS: #Basophils 0.1 thou/uL (0.0-0.2); #Eosinphils 0.4 thou/uL (0.0-0.7); #Lymphocytes 2.1 thou/uL (1.20-3.40); #Monocytes 0.4 thou/uL (0.11-0.59); #Neutrophils 3.2 thou/uL (1.40-6.50); %Basophils 1.6 % (0.0-1.0); %Eosinophils 7.3 % (0.0-10.0); %Monocytes 5.8 % (0.0-4.0); %Neutrophils 51.3 % (31.0-61.0); Hemoglobin 12.5 g/dL (12.0-16.0); Mean Corpuscular HGB CONC 32.7 g/dL (32.0-36.0); Mean Corpuscular Hemoglobin 30.5 pg (25.0-35.0); Mean Corpuscular Volume 93.5 fL (78.0-98.0); Mean Platelet Volume 9.5 fL (7.4-10.4); Platelet Count 256 thou/uL (130-400); White Blood Cell (WBC) Count 6.2 thou/uL (4.8-10.8)
[2019-04-17 22:23] LABS: ALT (SGPT) 13 U/L (8-55); AST (SGOT) 15 U/L (5-34); Albumin 4.2 g/dL (3.5-5.0); Alkaline Phosphatase 64 U/L (40-100); Anion Gap 13 mmol/L (10-20); BUN (Urea Nitrogen) 9 mg/dL (7.0-18.7); Bilirubin, Total 0.3 mg/dL (0.2-1.2); Calc. Creatinine Clearance 0 mL/min (70-130); Calcium 9.6 mg/dL (7.8-10.44); Carbon Dioxide 26 mmol/L (22-29); Chloride 104 mmol/L (98-107); Estimated GFR-MDRD Greater than 90; Globulin 3.2 g/dL (2.4-3.5); Glucose 79 mg/dL (70-105); Potassium 3.4 mmol/L (3.5-5.1); Protein, Total 7.4 g/dL (6.0-8.3); Sodium 140 mmol/L (136-145)
[2019-04-17 22:28] LABS: BHCG - Serum POSITIVE (NEGATIVE); Pregs Control Background? CLEAR/WHITE (CLR/WHITE); Pregs Control Bar Appear? YES (CONTROL BAR)
--- NOTE | 2019-04-17 23:22 | ULT ---
US Pelvic Transvag W Doppler History: Vaginal bleeding Comparison: Ultrasound March 27, 2019 Findings: Real-time grayscale, color, and spectral analysis of the pelvis was performed transabdomina l and transvaginal approach. Evidence of a scar anterior lower uterine body. There is debris within the endometrial cavi ty without vascular flow. Left ovary is not seen. Right ovary is normal with adequate vascular flow. Impression: Evidence of recent section with avascular debris/hematoma within the endometrial cavity, not unexpected post recent delivery.
[2019-04-17 23:26] LABS: Hemoglobin 13.3 g/dL (12.0-16.0); Mean Corpuscular HGB CONC 32.9 g/dL (32.0-36.0); Mean Corpuscular Hemoglobin 30.7 pg (25.0-35.0); Mean Corpuscular Volume 93.3 fL (78.0-98.0); Mean Platelet Volume 9.4 fL (7.4-10.4); Platelet Count 283 thou/uL (130-400); RBC Distribution Width 11.1 % (11.5-14.5); Red Blood Cell (RBC) Count 4.33 mill/uL (4.00-5.20); White Blood Cell (WBC) Count 6.3 thou/uL (4.8-10.8)
[2019-04-17] MEDS ORDERED: Misoprostol 100 MCG TAB PO SCH (23:45)
== END 2019-04-17 23:54 | disposition home or self-care (01) ==
LOC: ERS 21:19
DX: O72.2 Delayed and secondary postpartum hemorrhage (principal); Z79.899 Other long term (current) drug therapy
CPT/HCPCS: 76856; 80053; 84703; 85025; 86850; 86900; 86901